=== PATIENT | male | born 1950 | race Asian ===

== ENCOUNTER 2020-08-18 22:26 | Emergency (ER) | payer OTHER ==
[~2020-08-18] VITALS: Ht 177.8 cm; Wt 52.6 kg
[2020-08-18 22:26] VITALS: BP 125/48; TEMP 98.4
[2020-08-18 23:06] LABS: PLATELET COUNT 154 K/uL (142-355)
[2020-08-18 23:14] LABS: POTASSIUM 4.1 mmol/L (3.6-5.2)
[2020-08-19] MEDS ORDERED: AMLODIPINE BESYLATE PO (00:37)
[2020-08-19] MEDS ORDERED: HM ASPIRIN EC L81 MG PO (00:38)
[2020-08-19] MEDS ORDERED: BUSPIRONE HYDROC5 MG PO (00:39)
[2020-08-19] MEDS ORDERED: DIVA250T PO (00:40)
[2020-08-19] MEDS ORDERED: HYDROCHLOROT12.5 M1 PO (00:40)
[2020-08-19] MEDS ORDERED: LEVE500T5 PO (00:41)
[2020-08-19] MEDS ORDERED: LISI10TA11 PO (00:42)
[2020-08-19] MEDS ORDERED: MAPAP325 MG PO (00:44)
[2020-08-19] MEDS ORDERED: MIRALAX17 GM/SCOO PO (00:46)
[2020-08-19] MEDS ORDERED: SEROQUEL50 MG PO (00:49)
[2020-08-19] MEDS ORDERED: TAMS0.4C PO (00:55)
[2020-08-19] MEDS ORDERED: ZOLOFT25 MG PO (00:55)
[2020-08-19] MEDS ORDERED: VITAMIN B-12500 MCG PO (00:56)
[2020-08-19] MEDS ORDERED: THERA-M PO (00:56)
== END 2020-08-18 23:55 | disposition other institution (70) ==
LOC: ED 22:37
PROVIDERS: Family Medicine
DX: R46.89 Other symptoms and signs involving appearance and behavior (principal); Z11.59 Encounter for screening for other viral diseases; Z04.6 Encounter for general psychiatric examination, requested by authority; D64.89 Other specified anemias
CPT/HCPCS: 36415; 80053; 81000; 85007; 85027; 87635; 93005; 99283; 99285; U0003

== ENCOUNTER 2022-02-28 13:32 | Emergency (ER) | payer OTHER ==
[~2022-02-28] VITALS: Ht 190.5 cm; Wt 64.4 kg
[~2022-02-28 13:32] MED LIST: AMLODIPINE BESYLATE PO; ASCO500T18 PO; ASPIRIN 81 LOW81 MG PO; BUSP5TAB2 PO; BUSPIRONE HYDROC5 MG PO; CHOL100034 PO; DIVA250T PO; DIVALPROEX500 MG PO; ESCI10TA PO; GUAI200S10 PO; HYDROCHLOROT12.5 M1 PO; LEVE500T5 PO; LISI10TA11 PO; LORA10TA3 PO; MAPAP325 MG PO; MIRALAX17 GM/SCOO PO; SEROQUEL50 MG PO; TAMS0.4C PO; THERA-M PO; VITAMIN B-12500 MCG PO; ZOLOFT25 MG PO
[2022-02-28 13:58] LABS: PLATELET COUNT 171 K/uL (142-355)
[2022-02-28 14:08] LABS: POTASSIUM 4.4 mmol/L (3.6-5.2)
[2022-02-28 15:25] VITALS: BP 108/79; TEMP 97.6
[2022-02-28] MEDS ORDERED: DIVALPROEX250 M1 PO (16:51)
[2022-02-28] MEDS ORDERED: DIVALPROEX500 MG PO (16:52)
[2022-02-28] MEDS ORDERED: QUETIAPINE25 MG PO (17:00)
[2022-02-28] MEDS ORDERED: ESCI10TA PO (17:05)
[2022-02-28] MEDS ORDERED: SEROQUEL50 MG PO (17:07)
[2022-02-28] MEDS ORDERED: GABA300C2 PO (17:31)
[2022-02-28] MEDS ORDERED: LORA2INJ21 IM (17:32)
[2022-02-28] MEDS ORDERED: BUSPIRONE15 MG PO (18:08)
== END 2022-02-28 15:25 | disposition still patient (30) ==
LOC: ED 13:32
PROVIDERS: Emergency Medicine
DX: F28 Other psychotic disorder not due to a substance or known physiological condition (principal); R45.1 Restlessness and agitation; F10.11 Alcohol abuse, in remission; R56.9 Unspecified convulsions; Z86.73 Personal history of transient ischemic attack (TIA), and cerebral infarction without residual deficits; D64.89 Other specified anemias; Z11.52 Encounter for screening for COVID-19; Z04.6 Encounter for general psychiatric examination, requested by authority
CPT/HCPCS: 80053; 85027; 87635; 93005; 99283; U0003